=== PATIENT | male | born 1955 | race Caucasian/White ===

== ENCOUNTER → 2017-02-26 | Day surgery (SDC) | payer OTHER ==
[~2017-02-26] VITALS: Ht 180.3 cm; Wt 84.0 kg
[~2017-02-26] MED LIST: ACETAMINOPHEN 325 MG TAB PO PRN; ASPI81TA11 PO; CHLORHEXIDINE GLUCONATE 2 % 1 PACK (2 CLOTHS) TOPICAL PRN; GLYB5TAB3 PO; INSULIN HUMAN REGULAR 1,000 UNITS/10 ML VIAL SQ PRN; LACTATED RINGER'S 1000 ML IV PRN; LIDOCAINE HCL 1% PF 30 ML VIAL ONE; LIDOCAINE HCL 2% JELLY 5 ML SYRINGE TOPICAL ONE; METF500T4 PO; METOPROLOL TARTRATE 25 MG TAB PO PRN; POVIDONE IODINE 5% (ANTISEPSIS KIT) 4 APPLICATIONS EACH NARE PRN; PROPARACAINE HCL 0.5% OPHT SOLN 15 ML BTL LEFT EYE ONE; SODIUM CHLORID 0.9% 500 ML IV PRN; TOBRAMYCIN/DEXAMETHASONE OPTH OINT 3.5 GM TUBE ONE
[2017-02-26 07:55] VITALS: BP 134/77; PULSE 73; RESP 18; TEMP 97.8; O2SAT 99
[2017-02-26] MEDS: CYCLOPENTOLATE HCL 1% OPHT SOLN 2 ML BTL LEFT EYE SCH ×4 (08:02→08:17)
[2017-02-26] MEDS: PHENYLEPHRINE HCL 10% OPTH SOLN 5 ML BTL LEFT EYE SCH ×4 (08:02→08:17)
[2017-02-26] MEDS: FLURBIPROFEN 0.03% OPHT SOLN 2.5 ML BTL LEFT EYE SCH ×4 (08:02→08:17)
[2017-02-26] MEDS: TROPICAMIDE 1% OPHT SOLN 15 ML BTL LEFT EYE SCH ×4 (08:02→08:17)
[2017-02-26 10:10] VITALS: BP 149/93; PULSE 65; RESP 16; TEMP 98; O2SAT 100
--- NOTE | 2017-02-27 13:02 | MP ---
cc: JASMEET VALERIO M.D. DATE OF SURGERY: 02/26/2017. [facility] NUMBER: [id number] PREOPERATIVE DIAGNOSIS: Visually significant cataract left eye. POSTOPERATIVE DIAGNOSIS: Visually significant cataract left eye. OPERATION: Phacoemulsification with posterior chamber lens implantation, left eye. SURGEON: Jasmeet Valerio MD ANESTHESIA: Topical with MAC. COMPLICATIONS: None. DESCRIPTION OF THE PROCEDURE IN DETAIL: After informed consent was obtained, the patient was brought into the operative suite and placed on appropriate monitors by the anesthesia service. The patient had been given dilating drops and topical lidocaine gel in the holding area. The patient's operative eye was then prepped and draped in the usual sterile fashion. A wire lid speculum was placed. Further 2% lidocaine was then dropped on the cornea prior to beginning the procedure. A paracentesis incision was made in the peripheral cornea with a 1 mm oscar keratome. The anterior chamber was filled with viscoelastic. The anterior chamber was then entered through a stepped, clear corneal incision using a sharp 3 mm oscar keratome. A circular tear capsulorrhexis was then made with a bent needle cystitome. Following hydrodissection of the lens nucleus with balance saline, phacoemulsification of the nucleus was performed using a modified chopping technique. The remaining cortex was removed with irrigation/aspiration. The prior two procedures were both performed using the handpieces of the [employer] phaco unit. The capsular bag was then filled with viscoelastic. The intraocular lens was then injected into the capsular bag and positioned. The type of intraocular lens and its power can be found elsewhere in this chart. The remaining viscoelastic was then removed from the anterior chamber with the IA handpiece. The anterior chamber was reformed with balanced saline. The wound was then closed securely with stromal hydration. It was found to be watertight to an intraocular pressure of at least 30 mmHg by palpation. A small amount of balanced salt solution was then removed through the paracentesis site and the intraocular pressure at the end of the case was approximately 20 by palpation. All drapes were then removed. TobraDex ointment was then placed in the eye, which was closed beneath a semi-pressure patch dressing. The patient tolerated this procedure well and left the operating room awake and alert. The patient is to follow-up in my office in the morning. Jasmeet MD GHISLAINE Pulliam/GILDA /10:04 AM /12:56 PM
== END | disposition home or self-care (01) ==
LOC: PHSDC 06:38
PROVIDERS: ATTEND Optometrist Occupational Vision
DX: H25.12 Age-related nuclear cataract, left eye (principal); E11.39 Type 2 diabetes mellitus with other diabetic ophthalmic complication; H40.053 Ocular hypertension, bilateral; F17.200 Nicotine dependence, unspecified, uncomplicated; K21.9 Gastro-esophageal reflux disease without esophagitis; Z79.84 Long term (current) use of oral hypoglycemic drugs; Z79.82 Long term (current) use of aspirin; Z79.899 Other long term (current) drug therapy
CPT/HCPCS: 00142; 66984; J7040; V2632